=== PATIENT | female | born 1990 | race African-American/Black ===

== ENCOUNTER 2016-12-22 12:26 | Emergency (ER) | payer SELFPAY ==
[~2016-12-22] VITALS: Ht 162.6 cm; Wt 43.0 kg
[2016-12-22] MEDS ORDERED: MECLIZINE 25MG TABLET PO ONE (15:30)
[2016-12-22 16:52] LABS: UCG SCREEN NEGATIVE
[2016-12-22 18:46] VITALS: BP 124/69
== END 2016-12-22 18:47 | disposition home or self-care (01) ==
LOC: ER 15:42
DX: R42 Dizziness and giddiness (principal)
CPT/HCPCS: 70450; 81025; 99285; J8597

== ENCOUNTER 2017-11-01 12:04 | Emergency (ER) | payer SELFPAY ==
[~2017-11-01] VITALS: Ht 162.6 cm; Wt 48.0 kg
[2017-11-01] MEDS ORDERED: HYDROCODONE/ACETAMINOPHEN 5/325MG TABLET PO ONE (13:00)
[2017-11-01 17:29] VITALS: BP 116/87
== END 2017-11-01 17:30 | disposition home or self-care (01) ==
LOC: ER 13:45
DX: S42.032A Displaced fracture of lateral end of left clavicle, initial encounter for closed fracture (principal); R51 Headache; Y93.89 Activity, other specified; Y92.89 Other specified places as the place of occurrence of the external cause; Y99.8 Other external cause status; W19.XXXA Unspecified fall, initial encounter
CPT/HCPCS: 70450; 72125; 73030; 81025; 99284; A4565

== ENCOUNTER 2019-05-06 01:01 | Emergency (ER) | payer OTHER ==
[~2019-05-06] VITALS: Ht 167.6 cm; Wt 61.0 kg
[2019-05-06] MEDS ORDERED: SODIUM CHLORIDE 0.9% 1,000 ML IV ONE (01:45)
[2019-05-06] MEDS ORDERED: ONDANSETRON HCL 4MG/2ML INJ IV STA (01:45)
[2019-05-06] MEDS ORDERED: MORPHINE SULFATE 4 MG/ML CPJ (NOT FOR IM USE) IV STA (01:45)
[2019-05-06 02:05] LABS: HEMATOCRIT. 39.4 % (36.0-48.0); HEMOGLOBIN. 12.9 g/dL (12.0-16.0); MEAN CORPUSCULAR HEMOGLOBIN 31.6 pg (28.0-32.0); MEAN CORPUSCULAR VOLUME 96.6 fL (81.0-99.0); MEAN PLATELET VOLUME 9.8 fl (7.4-10.4); PLATELET 219 x1000/uL (130-400); RED BLOOD CELL COUNT 4.08 mill/uL (4.2-5.4); RED CELL DISTRIBUTION WIDTH 12.5 % (11.6-14.6)
[2019-05-06 02:06] LABS: CHLORIDE 105 mEq/L (98-107)
[2019-05-06] MEDS ORDERED: MORPHINE SULFATE 4 MG/ML CPJ (NOT FOR IM USE) IV ONE (02:45)
[2019-05-06 03:39] LABS: PLATELET ESTIMATE NORMAL
[2019-05-06 04:34] VITALS: BP 107/60
== END 2019-05-06 04:38 | disposition home or self-care (01) ==
LOC: ER 01:01
DX: A08.4 Viral intestinal infection, unspecified (principal); F12.90 Cannabis use, unspecified, uncomplicated; R73.9 Hyperglycemia, unspecified
CPT/HCPCS: 36415; 80053; 81025; 85025; 96361; 96374; 96375; 99283; J2270; J2405; J7030; Z7610